=== PATIENT | male | born 1975 | race Caucasian/White ===

== ENCOUNTER 2016-11-30 12:03 | Emergency (ER) | payer OTHER ==
[~2016-11-30] VITALS: Ht 170.2 cm; Wt 89.8 kg
[~2016-11-30 12:03] MED LIST: ANAPROX DS550 M1 PO; CIPRO500 MG PO; CLARITIN10 M3 PO; FLEXERIL10 MG PO; FLOMAX0.4 MG PO; IBUPROFEN200 M1 PO; NAPROSYN500 MG PO; NOHOMEMEDS; NORCO 5/3251 TABLET PO; PERCOCET 5/31 TABLET PO; PERCOCET 7.51 TABLET PO; PRILOSEC OTC20 MG PO; PROMETHAZINE HC25 M1 PO; PriLOSEC PO; TESSALON200 MG PO; VALIUM5 MG PO; ZOFRAN4 MG PO; ZOLOFT50 MG PO
[2016-11-30 12:07] VITALS: BP 147/100
[2016-11-30] MEDS ORDERED: TEMOVATE 0.05%30 GM TP (13:39)
== END 2016-11-30 13:51 | disposition home or self-care (01) ==
LOC: EME 12:03
DX: L23.7 Allergic contact dermatitis due to plants, except food (principal)
CPT/HCPCS: 99281; 99283; J1100

== ENCOUNTER 2016-12-20 16:57 | Day surgery (SDC) | payer OTHER ==
[~2016-12-20] VITALS: Ht 170.2 cm; Wt 89.0 kg
[~2016-12-20 16:57] MED LIST changes: +TEMOVATE 0.05%30 GM TP
[2016-12-20 17:49] LABS: HEMATOCRIT 45.4 % (38.0-50.0); MCH 30.3 PG (29.0-34.0); MCHC 34.6 G/DL (30.0-36.0); MCV 87.5 FL (86-99); MEAN PLAT.VOLUME 10.7 uM^3 (9.0-12.4); PLATELET COUNT 273 K/uL (156-360); RBC DIS.WIDTH-CV 12.5 % (11.8-14.6); RBC DIS.WIDTH-SD 40.3 % (39-53); RED BLOOD COUNT 5.19 M/uL (4.00-5.50); WHITE BLOOD COUNT 14.7 K/uL (4.1-10.2)
[2016-12-20 18:06] LABS: CHLORIDE 103 mEq/L (99-109); POTASSIUM 3.9 mEq/L (3.7-5.4); SODIUM 136 mEq/L (136-147)
[2016-12-20 18:08] LABS: GLUCOSE 129 mg/dL (70-99)
[2016-12-20 18:09] LABS: ANION GAP 10 MEQ/L (2-14)
[2016-12-20 18:10] LABS: TOTAL BILIRUBIN 0.8 mg/dL (0.0-1.0)
[2016-12-20 18:12] LABS: ALKALINE PHOSPHATASE 153 IU/L (3-129); GFR ESTIMATE (CALCULATED) > 59 mL/min/
[2016-12-20 18:13] LABS: UREA NITROGEN (BUN) 10 mg/dL (9-23)
[2016-12-20 18:14] LABS: DIRECT BILIRUBIN 0.3 mg/dL (0.0-0.3)
[2016-12-20] MEDS ORDERED: OXYCODONE HCL15 MG PO (21:23)
[2016-12-20 23:12] VITALS: BP 130/79
[2016-12-21 03:23] VITALS: BP 120/69
[2016-12-21 07:10] VITALS: BP 129/81
[2016-12-21 11:03] VITALS: BP 132/67
[2016-12-21 14:00] VITALS: BP 167/93
[2016-12-21 15:51] VITALS: BP 140/86
[2016-12-21 16:11] VITALS: BP 140/86
== END 2016-12-21 18:33 | disposition home or self-care (01) ==
LOC: EME 16:57 → SDC 21:49 → 2EASTP 22:27 → 2SOUTH 22:27 → 2EASTP 23:10
PROVIDERS: Surgery
PROC: 0DTJ4ZZ Resection of Appendix, Percutaneous Endoscopic Approach (ICD-10-PCS; principal; 2016-12-20)
DX: K35.80 Unspecified acute appendicitis (principal); I10 Essential (primary) hypertension; N20.0 Calculus of kidney; Z87.442 Personal history of urinary calculi
CPT/HCPCS: 74176; 80053; 81003; 82248; 82948; 85027; 88304; 99281; 99284; G0378; J0131; J0330; J1100; J1650; J1885; J2250; J2270; J2405; J2543; J3010; J7050; J7120

== ENCOUNTER 2017-12-27 19:12 | Emergency (ER) | payer OTHER ==
[~2017-12-27] VITALS: Ht 170.2 cm; Wt 88.9 kg
[~2017-12-27 19:12] MED LIST changes: +OXYCODONE HCL15 MG PO
[2017-12-27] MEDS ORDERED: PREDNISONE20 MG PO (20:40)
[2017-12-27] MEDS ORDERED: VISTARIL50 MG PO (20:40)
[2017-12-27 20:57] VITALS: BP 150/84
== END 2017-12-27 20:58 | disposition home or self-care (01) ==
LOC: EME 19:12
DX: L23.7 Allergic contact dermatitis due to plants, except food (principal); Z88.5 Allergy status to narcotic agent
CPT/HCPCS: J1100; Q0177